=== PATIENT | female | born 1950 | race Caucasian/White ===

== ENCOUNTER 2021-07-04 12:17 | Emergency (ER) | payer MEDICARE, BC ==
[~2021-07-04] VITALS: Ht 157.5 cm; Wt 59.0 kg
[2021-07-04 12:30] VITALS: BP 172/80
--- NOTE | 2021-07-04 12:53 | PHYS DOC ---
Past History Past Surgical History: Other Additional Past Surgical Histo: Thyroid General Adult EDM: Chief Complaint: MECHANICAL FALL HPI: HPI: 70-year-old female presents after mechanical fall. Patient was walking into the room. This toe on the concrete onto the concrete sidewalk. She has pain in the left hand over the fourth and fifth metacarpal bones. She is concerned about fracture. Patient also believes that she hit the left side of her chin on the ground and now has pain on the right side. She is able to open and close her mouth but it is uncomfortable. She denies loss of consciousness. She said no vomiting. She has no other complaints at this time. Review of Systems: Review of Systems: Constitutional: Denies fever or chills Eyes: Denies change in visual acuity HENT: Denies nasal congestion or sore throat. Right jaw pain Respiratory: Denies cough or shortness of breath Cardiovascular: Denies chest pain or edema GI: Denies abdominal pain, nausea, vomiting, bloody stools or diarrhea : Denies dysuria Musculoskeletal: Left hand pain Integument: Denies rash Neurologic: Denies headache, focal weakness or sensory changes Endocrine: Denies polyuria or polydipsia Lymphatic: Denies swollen glands Psychiatric: Denies depression or anxiety Allergies: Allergies: Allergies Coded Allergies Type Severity Reaction Last Updated Verified No Known Drug Allergies 07/04/21 No Physical Exam: PE: Constitutional: Well developed, well nourished, no acute distress, non-toxic appearance. [] HENT: Normocephalic, atraumatic, bilateral external ears normal, oropharynx moist, no oral exudates, nose normal. [] Eyes: PERRLA, EOMI, conjunctiva normal, no discharge. [] Neck: Normal range of motion, no tenderness, supple, no stridor. [] Cardiovascular: Heart rate regular rhythm, no murmur [] Lungs & Thorax: Bilateral breath sounds clear to auscultation [] Abdomen: Bowel sounds normal, soft, no tenderness, no masses, no pulsatile masses. [] Skin: Multiple small abrasions of the left arm and hand [] Back: No tenderness, no CVA tenderness. [] Extremities: Left hand with tenderness and ecchymosis over the fourth and fifth metacarpal. [] Neurologic: Alert and oriented X 3, normal motor function, normal sensory function, no focal deficits noted. [] Psychologic: Affect normal, judgement normal, mood normal. [] Current Patient Data: Vital Signs: Vital Signs Date Time Temp Pulse Resp B/P (MAP) Pulse Ox O2 Delivery O2 Flow Rate FiO2 07/04/21 12:30 97.9 70 16 172/80 (110) 98 Room Air EKG: EKG: [] Radiology/Procedures: Radiology/Procedures: [] Impressions: Exam: XR HAND_LEFT 3 VIEWS, XR LT WRIST 3VIEWS History: Fall. Pain. Comparison: None. Findings: There is an oblique fracture of the distal left fourth metacarpal with a pproximately 4 mm of ulnar and dorsal displacement. Degenerative changes at the wrist greatest in the first CMC, triscaphe and distal radioulnar joint. 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 Impression: 1. Mildly displaced fracture of the distal fourth metacarpal. Electronically signed by: Osvaldo Canada MD (07/04/2021 1:15 PM) [id number] DICTATED AND SIGNED BY: OSVALDO CANADA MD DATE: 07/04/21 131 CC: ANA HOLLIS DO ~ EXAM: Maxillofacial bone CT without contrast. HISTORY: Trauma. Pain. TECHNIQUE: Computed tomographic images of the maxillofacial bones were obtained without contrast. *One or more of the following individualized dose reduction techniques were utilized for this examination: 1. Automated exposure control. 2. Adjustment of the mA and/or kV according to patient size. 3. Use of iterative reconstruction technique. COMPARISON: There is no acute fracture. There is leftward nasal septal deviation. The ostiomeatal meatal units are widely patent. There is no sinus opacification or air-fluid level. There is degenerative spurring and bony remodeling involving the temporomandibular joints, consistent with osteoarthritis. There is soft tissue stranding along the posterior inferior left mandible due to a contusion. No foreign body is seen. There are degenerative changes involving the cervical spine, including endplate remodeling and facet arthropathy at multiple levels. This results in mild left foraminal stenosis at C4-C5 and mild bilateral foraminal stenosis at C5-C6. There is cerebral volume loss. There is no mass effect or midline shift. There is no hydrocephalus. IMPRESSION: 1. No evidence of acute maxillofacial bone fracture. There is a soft tissue contusion along the posterior inferior left mandible. 2. Mild nasal septal deviation. 3. Degenerative change involving the visualized cervical spine, described above. 4. Mild cerebral volume loss. Electronically signed by: Leena Gonsalvse MD (07/04/2021 1:08 PM) [facility] DICTATED AND SIGNED BY: LEENA GONSALVES MD DATE: 07/04/21 2198 CC: ANA HOLLIS DO ~ Heart Score: C/O Chest Pain: N/A Risk Factors: Risk Factors: DM, Current or recent (<one month) smoker, HTN, HLP, family history of CAD, obesity. Risk Scores: Score 0 - 3: 2.5% MACE over next 6 weeks - Discharge Home Score 4 - 6: 20.3% MACE over next 6 weeks - Admit for Clinical Observation Score 7 - 10: 72.7% MACE over next 6 weeks - Early Invasive Strategies Course & Med Decision Making: Course & Med Decision Making Pertinent Labs and Imaging studies reviewed. (See chart for details) The patient's maxillofacial CT is negative for acute findings. She does have a very mildly displaced fracture of the distal fourth metacarpal of the left hand. We will place her in a splint advised that she follow-up with orthopedics. She is stable for discharge at this time. [] Vianney Disclaimer: Vianney Disclaimer: This electronic medical record was generated, in whole or in part, using a voice recognition dictation system. Departure Departure: Impression: Primary Impression: Fracture of fourth metacarpal bone of left hand Disposition: HOME / SELF CARE / HOMELESS Condition: STABLE Patient Instructions: Hand Fracture, Metacarpals, [id number] ANA HOLLIS DO July 04, 2021 12:53
--- NOTE | 2021-07-04 13:11 | RAD ---
EXAM: Maxillofacial bone CT without contrast. HISTORY: Trauma. Pain. TECHNIQUE: Computed tomographic images of the maxillofacial bones were obtained without contrast. *One or more of the following individualized dose reduction techniques were utilized for this examina tion: 1. Automated exposure control. 2. Adjustment of the mA and/or kV according to patient size. 3. Use of iterative reconstruction technique. COMPARISON: There is no acute fracture. There is leftward nasal septal deviation. The ostiomeatal earl rose units are widely patent. There is no sinus opacification or air-fluid level. There is degenerativ e spurring and bony remodeling involving the temporomandibular joints, consistent with osteoarthritis . There is soft tissue stranding along the posterior inferior left mandible due to a contusion. No fo reign body is seen. There are degenerative changes involving the cervical spine, including endplate r emodeling and facet arthropathy at multiple levels. This results in mild left foraminal stenosis at C 4-C5 and mild bilateral foraminal stenosis at C5-C6. There is cerebral volume loss. There is no mass effect or midline shift. There is no hydrocephalus. IMPRESSION: 1. No evidence of acute maxillofacial bone fracture. There is a soft tissue contusion along the poste rior inferior left mandible. 2. Mild nasal septal deviation. 3. Degenerative change involving the visualized cervical spine, described above. 4. Mild cerebral volume loss. Electronically signed by: Leena Ervin MD (07/04/2021 1:08 PM) [facility]
--- NOTE | 2021-07-04 13:18 | RAD ---
Exam: XR HAND_LEFT 3 VIEWS, XR LT WRIST 3VIEWS History: Fall. Pain. Comparison: None. Findings: There is an oblique fracture of the distal left fourth metacarpal with approximately 4 mm of ulnar an d dorsal displacement. Degenerative changes at the wrist greatest in the first CMC, triscaphe and dis rose radioulnar joint. 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 Impression: 1. Mildly displaced fracture of the distal fourth metacarpal. Electronically signed by: Osvlado Bradford MD (07/04/2021 1:15 PM) [id number]
== END 2021-07-04 14:15 | disposition home or self-care (01) ==
LOC: ER 12:17
DX: S62.305A Unspecified fracture of fourth metacarpal bone, left hand, initial encounter for closed fracture (principal); W19.XXXA Unspecified fall, initial encounter; Y93.89 Activity, other specified; Y92.89 Other specified places as the place of occurrence of the external cause; Y99.8 Other external cause status
CPT/HCPCS: 29125; 70486; 73110; 73130; 99284-25